=== PATIENT | male | born 1995 | race African-American/Black ===

== ENCOUNTER 2017-07-04 18:37 | Emergency (ER) | payer BC, OTHER ==
[2017-07-04] MEDS ORDERED: MAG HYDROX/AL HYDROX/SIMETH 30 ML UDC PO STA (19:28)
[2017-07-04] MEDS ORDERED: LIDOCAINE VISCOUS 2% 15 ML UDC MM STA (19:28)
--- NOTE | 2017-07-04 19:30 | ED Physician Documentation ---
PD HPI CHEST PAIN - Stated complaint Stated Complaint: CHEST PRESSURE - Chief complaint Chief Complaint: Cardiac - History obtained from History obtained from: Patient - History of Present Illness Timing - onset: Other (2 days of intermittent chest pressure that is worse with deep breathing. There is no associated shortness of breath. Nurse's notes document that he recently traveled, but he went to [facility] and came back 3 months ago. No more recent travel. There is no leg swelling or leg pain. He had a similar episode a couple of years ago when he was eating too much weight protein and he relates this to probably been due to eating too much mayonnaise 2 days ago. There is no fever cough.) Review of Systems Constitutional: denies: Fever, Chills, Fatigue Throat: denies: Dental pain / toothache, Sore throat Cardiac: denies: Palpitations, Pedal edema, Calf pain Respiratory: denies: Dyspnea, Cough PD PAST MEDICAL HISTORY - Past Medical History Past Medical History: No - Past Surgical History Past Surgical History: Yes - Present Medications Home Medications: Ambulatory Orders Medication Instructions Recorded Confirmed Ibuprofen [Motrin] 800 mg PO Q8H PRN #30 tablet 07/04/17 Omeprazole [PriLOSEC] 20 mg PO DAILY #14 capsule 07/04/17 - Allergies Allergies/Adverse Reactions: Allergies Allergy/AdvReac Type Severity Reaction Status Date / Time No Known Drug Allergies Allergy Verified 07/04/17 18:52 - Social History Does the pt smoke?: No Smoking Status: Never smoker Does the pt drink ETOH?: No Does the pt have substance abuse?: No - Immunizations Immunizations are current?: Yes PD ED PE NORMAL - Vitals Vital signs reviewed: Yes - General General: Alert and oriented X 3, No acute distress - HEENT HEENT: PERRL - Neck Neck: Supple, no meningeal sign, No bony TTP - Cardiac Cardiac: RRR, No murmur - Respiratory Respiratory: No respiratory distress, Clear bilaterally - Abdomen Abdomen: Non tender - Neuro Neuro: Alert and oriented X 3, Normal speech Results - Vitals Vitals: Vital Signs - 24 hr 07/04/17 18:47 Temperature 36.7 C Heart Rate 53 L Respiratory 14 Rate Blood Pressure 141/70 H O2 Saturation 100 Oxygen O2 Source Room air - EKG (time done) 853 Rate: Rate (enter#) (58) Rhythm: NSR [place]: Normal Intervals: Normal NM QRS: Normal Ischemia: ST elevation c/w repol. No: ST elevation c/w ischemia, ST depression Computer interpretation: Agree with computer - Rads (name of study) 2v chest Radiology: EMP read contemporaneously (normal) PD MEDICAL DECISION MAKING - ED course ED course: 21-year-old with atypical chest pain, thinks it may be a digestive issue is he has had some dietary changes. He did have modest relief from GI cocktail. His EKG is nonischemic and his chest x-ray is normal Departure - Departure Disposition: Home, Self Care Clinical Impression: Atypical chest pain Condition: Good Record reviewed to determine appropriate education?: Yes Instructions: ED Chest Pain NonCardiac Prescriptions: Ibuprofen [Motrin] 800 mg PO Q8H PRN #30 tablet PRN Reason: PAIN &/OR FEVER Omeprazole [PriLOSEC] 20 mg PO DAILY #14 capsule Comments: Call your doctor to arrange a follow-up appointment, make the next available appointment. In the interim, return anytime if worse or if new symptoms develop. Your blood pressure was elevated today on check into the emergency department. This does not mean that you have hypertension, it is a common phenomenon to come to the emergency department and have elevated blood pressure. I recommend that you see your primary care physician within the week to have it rechecked when you are feeling better.
--- NOTE | 2017-07-04 20:54 | XRAY Report ---
EXAM: CHEST RADIOGRAPHY EXAM DATE: 07/04/2017 08:23 PM. CLINICAL HISTORY: Left upper quadrant and anterior chest pain for 2 days. COMPARISON: None. TECHNIQUE: 2 views. FINDINGS: Lungs/Pleura: No focal opacities evident. No pleural effusion. No pneumothorax. Normal volumes. Mediastinum: Heart and mediastinal contours are unremarkable. Other: No bony abnormality identified. IMPRESSION: Normal 2-view chest radiography. [facility] Referring Provider Line: [phone] SITE ID: [id number]
--- NOTE | 2017-07-04 20:54 | XRAY Preliminary Report ---
Exam: XR CHEST 2 VIEW X-RAY IMPRESSION: Normal 2-view chest radiography. [facility] SITE ID: [id number]
[2017-07-04] MEDS ORDERED: IBUPROFEN 800 MG TABLET PO STA (21:04)
[2017-07-04] MEDS ORDERED: PANTOPRAZOLE 40 MG TABLET PO STA (21:04)
[2017-07-04 21:14] VITALS: BP 141/72
== END 2017-07-04 21:30 | disposition home or self-care (01) ==
LOC: ED 18:37
DX: R07.89 Other chest pain (principal)
CPT/HCPCS: 71046; 99283; A9270; 93005